=== PATIENT | female | born 1950 | race Caucasian/White ===

== ENCOUNTER → 2017-03-14 | Outpatient (CLI) | payer OTHER ==
[~2017-03-14] MED LIST: ADVIL200 MG PO; CITALOPRAM10 MG PO; LISINOPRIL5 MG PO; LOPRESSOR25 MG PO
--- NOTE | ~2017-03-14 | ST ---
[place], [place] EXERCISE STRESS TEST REPORT NAME: TA BANSAL [facility] #: [id number] UNIT #: [id number] ROOM: DOCTOR: TAVO HYLTON [facility],BIJU BIRTHDATE: [birth year] DOS: 03/14/2017 STRESS TEST REPORT The patient underwent stress test and stays on Jose protocol, up to 4 METs and up to 100% predicted, 156 per minute. Ischemic changes in the inferior and lateral leads, horizontal ST depression more than 1 mm and the patient developed tiredness and fatigue. Underlying ischemia in the inferior and the lateral leads, II, III, aVF, and V4, V5, V6 and blood pressure response is good. Double product is good. Optimize the medical therapy. In spite of the patient still is symptomatic, may consider further evaluation with coronary arteriography. BIJU VO MD CM:STRESS:EXERCISE STRESS TEST REPORT [id number] BIJU VO MD [facility]
--- NOTE | 2017-03-14 13:00 | NUR ---
INFORMED CONSENT OBTAINED FOR STANDARD GXT WITH DR. VO. RESTING EKG NSR WITH A SUPINE HR OF 73 WITH BP OF 160/98 AND HR OF 87 WITH BP OF 144/88 IN STANDING POSITION. PT COMPLETED 2:31 OF STAGE I OF A KALI PROTOCOL AT 1.7 MPH AND 10% GRADE. REACHED A PEAK HR OF 156 WHICH IS 102% OF PREDICTED MAX WITH PEAK BP OF 160/72. TEST TERMINATED BECAUSE OF FATIGUE. HAD NO CHEST PAIN. DID DEVELOP [address] DEPRESSION IN LEADS II,III,AVF AND V5-V6. DR. VO EXPLAINED ABNORMAL EKG AND APPOINTMENT SCHEDULED FOR IN [place] OFFICE. EXPLAINED TO AVOID STRENUOUS ACTIVITY AND TO CALL 911 AND GO TO ER IF DEVELOPS CHEST/SHOUDER/UPPER BACK DISCOMFORT OR SOB. HANDOUT GIVEN. LAST RECOVERY HR OF 80 WITH BP OF 144/72. HAS LIMITED EXERCISE TOLERANCE. DISCHARGED IN STABLE CONDITION.
== END | disposition home or self-care (01) ==
LOC: CARD 01:58
DX: I20.8 Other forms of angina pectoris (principal); M79.602 Pain in left arm

== ENCOUNTER 2017-08-05 13:32 | Emergency (ER) | payer OTHER ==
[~2017-08-05] VITALS: Ht 152.4 cm; Wt 76.2 kg
[2017-08-05] MEDS ORDERED: CENTRUM ADULTS1 EACH PO (13:47)
[2017-08-05 14:18] LABS: BASO # 0.1 10*3/uL (0.0-0.1); BASO % 0.8 % (0.0-1.0); EOS # 0.2 10*3/uL (0.0-0.4); EOS % 2.8 % (1.0-4.0); HEMATOCRIT 41.5 % (37.0-47.0); HEMOGLOBIN 13.3 g/dl (12.0-16.0); LYMPH # 2.5 10*3/uL (1.3-4.4); MEAN CELL VOLUME 94.1 fl (81.0-99.0); MEAN CORPUSCULAR HGB 30.2 pg (27.0-31.0); MEAN PLATELET VOLUME 11.3 fl (9.6-12.3); MONO # 0.6 10*3/uL (0.1-1.0); NEUT # 4.6 10*3/uL (2.3-7.9); NEUT % 57.1 % (47.0-73.0); PLATELET COUNT AUTOMATED 238 10*3/uL (130-400); RED BLOOD COUNT 4.41 10*6/uL (4.10-5.10); RED CELL DISTRI WIDTH 14.2 % (0-14.5)
[2017-08-05 14:37] LABS: ALBUMIN 3.9 gm/dl (3.1-4.5); ALKALINE PHOSPHATASE 63 U/L (45-117); BUN 21 mg/dl (7-24); CHLORIDE 104 mmol/L (98-107); CREATININE 0.94 mg/dL (0.55-1.02); SGOT/AST 23 IU/L (3-35); SGPT/ALT 26 U/L (12-78); SODIUM 140 mmol/L (136-145)
[2017-08-05 14:38] LABS: TROPONIN I < 0.015 ng/ml (<0.045)
[2017-08-05] MEDS ORDERED: Meclizine25 MG PO (15:20)
== END 2017-08-05 15:24 | disposition home or self-care (01) ==
LOC: ED 13:32
PROVIDERS: Emergency Medicine
DX: R42 Dizziness and giddiness (principal); R51 Headache; R68.84 Jaw pain; Z98.890 Other specified postprocedural states; Z79.899 Other long term (current) drug therapy

== ENCOUNTER → 2020-11-25 | Outpatient (CLI) | payer OTHER ==
[~2020-11-25] MED LIST changes: +CENTRUM ADULTS1 EACH PO; +Meclizine25 MG PO
[2020-11-25 13:29] LABS: BILIRUBIN Negative (Negative); BLOOD Negative (Negative); CLARITY Cloudy (Clear); COLOR Yellow (Yellow); GLUCOSE Negative (Negative); KETONE Negative (Negative); LEUKO ESTERASE 3+ (Negative); NITRITE Negative (Negative); PH 5.5 (4.5-8.0)
[2020-11-25 13:33] LABS: BASO # 0.1 10*3/uL (0.0-0.1); EOS # 0.2 10*3/uL (0.0-0.4); EOS % 3.3 % (1.0-4.0); HEMATOCRIT 44.4 % (37.0-47.0); MEAN CELL VOLUME 95.1 fl (81.0-99.0); MEAN CORPUSCULAR HGB 29.1 pg (27.0-31.0); MEAN CORPUSCULAR HGB CONC 30.6 g/dl (33.0-37.0); MEAN PLATELET VOLUME 11.9 fl (9.6-12.3); MONO # 0.6 10*3/uL (0.1-1.0); MONO % 8.7 % (3.0-9.0); NEUT % 57.7 % (47.0-73.0); PLATELET COUNT AUTOMATED 278 10*3/uL (130-400); RED BLOOD COUNT 4.67 10*6/uL (4.10-5.10); RED CELL DISTRI WIDTH 14.6 % (0-14.5); RETICULOCYTE % 1.18 % (0.50-2.50); WHITE BLOOD COUNT 6.9 10*3/uL (4.8-10.8)
[2020-11-25 14:00] LABS: ALBUMIN 3.8 gm/dl (3.1-4.5); ALKALINE PHOSPHATASE 62 U/L (45-117); BUN 14 mg/dl (7-24); CHLORIDE 108 mmol/L (98-107); CHOLESTEROL 182 mg/dL (<200); CREATININE 0.98 mg/dL (0.55-1.02); GAMMA GLUTAMYL TRANSPEPTIDASE 20 U/L (5-55); IRON 86 ug/dL (50-170); LDL CHOLESTEROL 112 mg/dL (9-159); SGOT/AST 19 IU/L (3-35); SGPT/ALT 18 U/L (12-78); SODIUM 137 mmol/L (136-145); TOTAL IRON BINDING CAPACITY 351 ug/dl (250-450); TOTAL PROTEIN 8.2 gm/dL (6.4-8.2); TRIGLYCERIDES 139 mg/dl (<150)
[2020-11-25 14:04] LABS: FERRITIN 81.3 ng/mL (10.0-291.0); VITAMIN D, 25-HYDROXY 17.7 ng/mL (30-100)
[2020-11-25 15:16] LABS: BACTERIA 2+; WBC 16-20 wbc/hpf (0-5)
== END | disposition home or self-care (01) ==
LOC: LAB 12:58
PROVIDERS: ATTEND Family Medicine
DX: R53.83 Other fatigue (principal); E78.5 Hyperlipidemia, unspecified; R79.89 Other specified abnormal findings of blood chemistry; E55.9 Vitamin D deficiency, unspecified

== ENCOUNTER → 2021-12-13 | Outpatient (CLI) | payer OTHER ==
[2021-12-13 13:04] LABS: BILIRUBIN Negative (Negative); BLOOD 2+ (Negative); CLARITY Clear (Clear); COLOR Yellow (Yellow); GLUCOSE Negative (Negative); KETONE Negative (Negative); LEUKO ESTERASE 3+ (Negative); NITRITE Negative (Negative); SPECIFIC GRAVITY 1.015 (1.001-1.030)
[2021-12-13 13:06] LABS: BASO # 0.1 10*3/uL (0.0-0.1); BASO % 0.8 % (0.0-1.0); EOS # 0.3 10*3/uL (0.0-0.4); EOS % 4.1 % (1.0-4.0); HEMATOCRIT 41.6 % (37.0-47.0); LYMPH # 2.1 10*3/uL (1.3-4.4); LYMPH % 29.1 % (27.0-41.0); MEAN CORPUSCULAR HGB 29.9 pg (27.0-31.0); MEAN CORPUSCULAR HGB CONC 32.5 g/dl (33.0-37.0); MEAN PLATELET VOLUME 11.3 fl (9.6-12.3); MONO # 0.8 10*3/uL (0.1-1.0); MONO % 10.5 % (3.0-9.0); NEUT % 55.4 % (47.0-73.0); PLATELET COUNT AUTOMATED 251 10*3/uL (130-400); RED BLOOD COUNT 4.52 10*6/uL (4.10-5.10); RETICULOCYTE % 1.37 % (0.50-2.50); WHITE BLOOD COUNT 7.1 10*3/uL (4.8-10.8)
[2021-12-13 13:27] LABS: ALKALINE PHOSPHATASE 49 U/L (45-117); BACTERIA 2+; BUN 14 mg/dl (7-24); CHLORIDE 107 mmol/L (98-107); CHOLESTEROL 176 mg/dL (<200); CREATININE 0.92 mg/dL (0.55-1.02); EPITHELIAL CELLS 21-30; GAMMA GLUTAMYL TRANSPEPTIDASE 17 U/L (5-55); IRON 81 ug/dL (50-170); LDL CHOLESTEROL 108 mg/dL (9-159); POTASSIUM 4.3 mmol/L (3.5-5.1); SGOT/AST 18 IU/L (3-35); SGPT/ALT 15 U/L (12-78); SODIUM 138 mmol/L (136-145); TOTAL PROTEIN 7.6 gm/dL (6.4-8.2); TRIGLYCERIDES 113 mg/dl (<150); WBC 31-40 wbc/hpf (0-5)
[2021-12-13 14:17] LABS: FERRITIN 110.6 ng/mL (10.0-291.0); VITAMIN D, 25-HYDROXY 22.7 ng/mL (30-100)
== END | disposition home or self-care (01) ==
LOC: LAB 12:21
PROVIDERS: ATTEND Family Medicine
DX: R53.83 Other fatigue (principal); R79.89 Other specified abnormal findings of blood chemistry; E78.5 Hyperlipidemia, unspecified; E55.9 Vitamin D deficiency, unspecified

== ENCOUNTER → 2022-10-11 | Outpatient (CLI) | payer OTHER ==
[2022-10-11 13:08] LABS: BASO % 0.5 % (0.0-1.0); EOS # 0.2 10*3/uL (0.0-0.4); EOS % 2.5 % (1.0-4.0); HEMATOCRIT 42.7 % (37.0-47.0); LYMPH # 2.6 10*3/uL (1.3-4.4); LYMPH % 34.4 % (27.0-41.0); MEAN CELL VOLUME 94.1 fl (81.0-99.0); MEAN CORPUSCULAR HGB 29.5 pg (27.0-31.0); MEAN CORPUSCULAR HGB CONC 31.4 g/dl (33.0-37.0); MEAN PLATELET VOLUME 11.4 fl (9.6-12.3); MONO # 0.7 10*3/uL (0.1-1.0); MONO % 9.2 % (3.0-9.0); PLATELET COUNT AUTOMATED 244 10*3/uL (130-400); RED BLOOD COUNT 4.54 10*6/uL (4.10-5.10); RED CELL DISTRI WIDTH 14.1 % (0-14.5); RETICULOCYTE % 1.34 % (0.50-2.50); WHITE BLOOD COUNT 7.5 10*3/uL (4.8-10.8)
[2022-10-11 13:10] LABS: BILIRUBIN Negative (Negative); BLOOD 1+ (Negative); CLARITY Cloudy (Clear); COLOR Yellow (Yellow); GLUCOSE Negative (Negative); KETONE Negative (Negative); LEUKO ESTERASE 2+ (Negative); NITRITE Negative (Negative); PH 5.5 (4.5-8.0)
[2022-10-11 13:32] LABS: ALKALINE PHOSPHATASE 66 U/L (46-116); BUN 14 mg/dl (9-23); CHLORIDE 103 mmol/L (98-107); CHOLESTEROL 192 mg/dL (<200); GAMMA GLUTAMYL TRANSPEPTIDASE 18 U/L (0-73); LDL CHOLESTEROL 127 mg/dL (9-159); POTASSIUM 4.4 mmol/L (3.4-5.1); SGPT/ALT 8 U/L (10-49); TOTAL PROTEIN 7.9 gm/dL (6.0-8.0); TRIGLYCERIDES 106 mg/dl (<150)
[2022-10-11 13:53] LABS: VITAMIN D, 25-HYDROXY 25.7 ng/mL (30-100)
[2022-10-11 14:02] LABS: BACTERIA 3+; EPITHELIAL CELLS 16-20; WBC 41-50 wbc/hpf (0-5)
== END | disposition home or self-care (01) ==
LOC: LAB 12:31
PROVIDERS: ATTEND Family Medicine
DX: R53.83 Other fatigue (principal); R79.89 Other specified abnormal findings of blood chemistry; E55.9 Vitamin D deficiency, unspecified; E78.5 Hyperlipidemia, unspecified

== ENCOUNTER → 2023-01-17 | Outpatient (CLI) | payer OTHER | END | disposition home or self-care (01) | LOC: US 15:50 | PROVIDERS: ATTEND Nurse Practitioner Women's Health | DX: N95.0 Postmenopausal bleeding (principal); R93.89 Abnormal findings on diagnostic imaging of other specified body structures ==

== ENCOUNTER → 2023-02-28 | Outpatient (CLI) | payer OTHER | END | disposition home or self-care (01) | LOC: CT 02-23 11:00 | PROVIDERS: ATTEND Student in an Organized Health Care Education/Training Program | DX: K76.0 Fatty (change of) liver, not elsewhere classified (principal); N88.8 Other specified noninflammatory disorders of cervix uteri; I25.10 Atherosclerotic heart disease of native coronary artery without angina pectoris; K80.20 Calculus of gallbladder without cholecystitis without obstruction; K57.30 Diverticulosis of large intestine without perforation or abscess without bleeding; R59.0 Localized enlarged lymph nodes; Z85.41 Personal history of malignant neoplasm of cervix uteri ==

== ENCOUNTER → 2024-03-03 | Outpatient (CLI) | payer OTHER ==
[2024-03-03 14:49] LABS: BASO % 0.6 % (0.0-1.0); EOS # 0.2 10*3/uL (0.0-0.4); EOS % 2.4 % (1.0-4.0); HEMATOCRIT 39.4 % (37.0-47.0); LYMPH % 30.4 % (27.0-41.0); MEAN CELL VOLUME 98.7 fl (81.0-99.0); MEAN CORPUSCULAR HGB 30.3 pg (27.0-31.0); MEAN CORPUSCULAR HGB CONC 30.7 g/dl (33.0-37.0); MEAN PLATELET VOLUME 10.6 fl (9.6-12.3); MONO # 0.7 10*3/uL (0.1-1.0); MONO % 10.9 % (3.0-9.0); NEUT # 3.6 10*3/uL (2.3-7.9); NEUT % 55.4 % (47.0-73.0); PLATELET COUNT AUTOMATED 253 10*3/uL (130-400); RED BLOOD COUNT 3.99 10*6/uL (4.10-5.10); RETICULOCYTE % 1.38 % (0.50-2.50); WHITE BLOOD COUNT 6.5 10*3/uL (4.8-10.8)
[2024-03-03 15:04] LABS: BILIRUBIN Negative (Negative); BLOOD Negative (Negative); CLARITY Clear (Clear); COLOR Yellow (Yellow); GLUCOSE Negative (Negative); KETONE Trace (Negative); LEUKO ESTERASE 1+ (Negative); NITRITE Negative (Negative); PH 5.5 (4.5-8.0)
[2024-03-03 15:19] LABS: VITAMIN D, 25-HYDROXY 16.8 ng/mL (30-100)
[2024-03-03 15:21] LABS: BACTERIA 1+
[2024-03-03 15:22] LABS: HYALINE CAST 0-2
[2024-03-03 15:49] LABS: ALKALINE PHOSPHATASE 63 U/L (46-116); BUN 23 mg/dl (9-23); CHLORIDE 104 mmol/L (98-107); CHOLESTEROL 192 mg/dL (<200); GAMMA GLUTAMYL TRANSPEPTIDASE 23 U/L (0-73); LDL CHOLESTEROL 102 mg/dL (9-159); POTASSIUM 4.2 mmol/L (3.4-5.1); SGPT/ALT 11 U/L (5-49); TOTAL PROTEIN 7.5 gm/dL (6.0-8.0); TRIGLYCERIDES 226 mg/dl (<150)
== END | disposition home or self-care (01) ==
LOC: LAB 14:23
PROVIDERS: ATTEND Family Medicine
DX: R53.83 Other fatigue (principal); R79.89 Other specified abnormal findings of blood chemistry; E78.5 Hyperlipidemia, unspecified; R74.8 Abnormal levels of other serum enzymes; E55.9 Vitamin D deficiency, unspecified

== ENCOUNTER 2024-07-28 16:57 | Emergency (ER) | payer OTHER ==
[~2024-07-28] VITALS: Ht 144.7 cm; Wt 69.6 kg
[2024-07-28 17:20] LABS: BASO % 0.4 % (0.0-1.0); EOS # 0.1 10*3/uL (0.0-0.4); EOS % 1.4 % (1.0-4.0); HEMATOCRIT 39.7 % (37.0-47.0); MEAN CELL VOLUME 96.1 fl (81.0-99.0); MEAN CORPUSCULAR HGB 29.5 pg (27.0-31.0); MEAN CORPUSCULAR HGB CONC 30.7 g/dl (33.0-37.0); MEAN PLATELET VOLUME 10.2 fl (9.6-12.3); MONO % 12.1 % (3.0-9.0); NEUT % 59.6 % (47.0-73.0); PLATELET COUNT AUTOMATED 263 10*3/uL (130-400); RED BLOOD COUNT 4.13 10*6/uL (4.10-5.10); RED CELL DISTRI WIDTH 14.3 % (0-14.5); WHITE BLOOD COUNT 8.3 10*3/uL (4.8-10.8)
[2024-07-28] MEDS ORDERED: MEDI-MECLIZINE25 MG PO (17:22)
[2024-07-28] MEDS ORDERED: METOPROLOL TART50 M1 PO (17:22)
[2024-07-28] MEDS ORDERED: CORICIDIN HBP1 EACH PO (17:24)
[2024-07-28] MEDS ORDERED: WOMEN'S MULTI200 MCG PO (17:24)
[2024-07-28] MEDS ORDERED: ASPIRIN81 M1 PO (17:24)
[2024-07-28] MEDS ORDERED: ELDERBERRY IMM1 EACH PO (17:25)
[2024-07-28] MEDS ORDERED: VITAMIN B121000 MC1 PO (17:26)
[2024-07-28 17:45] LABS: BILIRUBIN Negative (Negative); BLOOD Negative (Negative); CLARITY Clear (Clear); COLOR Yellow (Yellow); GLUCOSE Negative (Negative); KETONE Negative (Negative); LEUKO ESTERASE Negative (Negative); NITRITE Negative (Negative); PH 5.5 (4.5-8.0)
[2024-07-28 17:47] LABS: ALKALINE PHOSPHATASE 50 U/L (46-116); BUN 15 mg/dl (9-23); CHLORIDE 102 mmol/L (98-107); LIPASE 34 U/L (12-53); SGPT/ALT 8 U/L (5-49); TOTAL PROTEIN 7.6 gm/dL (6.0-8.0)
[2024-07-28 17:55] LABS: MUCOUS 1+; WBC 0-2 wbc/hpf (0-5)
[2024-07-28] MEDS ORDERED: Dicyclomine Hydrochloride 20 MG/10 ML OSYR PO STA (17:57)
[2024-07-28] MEDS ORDERED: MG-AL HYDROXIDE/SIMETICONE 30 ML UDC PO STA (17:57)
[2024-07-28] MEDS ORDERED: Lidocaine Hydrochloride 15 ML UDC PO STA (17:57)
[2024-07-28] MEDS ORDERED: PRILOSEC20 M1 PO (20:01)
== END 2024-07-28 20:13 | disposition home or self-care (01) ==
LOC: ED 16:57
PROVIDERS: Nurse Practitioner Family
DX: R10.13 Epigastric pain (principal); I10 Essential (primary) hypertension; F41.9 Anxiety disorder, unspecified; Z79.899 Other long term (current) drug therapy; Z98.890 Other specified postprocedural states

== ENCOUNTER 2025-04-11 23:50 | Inpatient (IN) | payer OTHER ==
[~2025-04-11] VITALS: Ht 142.2 cm; Wt 62.6 kg
[~2025-04-11 23:50] MED LIST changes: +ASPIRIN81 M1 PO; +B12 ACTIVE1000 MCG PO; +CALCIUM GLUCONATE 1 GM/10 ML VIAL ONE; +CELEXA20 MG PO; +CORICIDIN HBP1 EACH PO; +ELDERBERRY IMM1 EACH PO; +ELIQUIS5 M1 PO; +GABARONE100 M1 PO; +INSULIN REGULAR, HUMAN 1 UNIT/0.01 ML ONE; +MEDI-MECLIZINE25 MG PO; +METOPROLOL TART50 M1 PO; +MULTIVITAMIN1 EACH PO; +Ondansetron4 MG PO; +PRILOSEC20 M1 PO; +SODIUM CHLORIDE 0.9% 100 ML IV ONE; +SODIUM POLYSTYRENE SULFONATE 15 GM/60 ML BOT ONE; +VITAMIN B121000 MC1 PO; +WOMEN'S MULTI200 MCG PO
[2025-04-12] VITALS: BP 75/42
[2025-04-12] MEDS ORDERED: NOREPINEPHRINE BITARTRATE/D5W 250 ML IV SCH (00:45)
[2025-04-12] MEDS ORDERED: LORazepam 2 MG/ML VIAL IV PRN ×2 (00:45→05:45)
[2025-04-12] MEDS ORDERED: HYOSCYAMINE SULFATE 0.125 MG TAB SL PRN (03:40)
[2025-04-12] MEDS ORDERED: ACETAMINOPHEN 650 MG SUPP R PRN (03:40)
[2025-04-12] MEDS ORDERED: ACETAMINOPHEN 650 MG SUPP R SCH (04:00)
[2025-04-12] MEDS ORDERED: HYOSCYAMINE SULFATE 0.125 MG TAB SL SCH (06:00)
[2025-04-12] MEDS ORDERED: SODIUM CHLORIDE 0.9% 500 ML IV SCH (07:50)
[2025-04-12 08:00] VITALS: BP 61/40
[2025-04-12] MEDS ORDERED: SODIUM CHLORIDE 0.9% 500 ML IV ONE (08:22)
[2025-04-12] MEDS ORDERED: BISACODYL 10 MG SUPP R SCH (10:00)
[2025-04-12] MEDS ORDERED: GLYCOPYRROLATE 0.2 MG/1 ML VIAL IV PRN (14:40)
[2025-04-12] MEDS ORDERED: GLYCOPYRROLATE 0.4 MG/2 ML VIAL IV PRN (14:55)
== END 2025-04-12 19:08 | DRG 871 ==
LOC: ICCU 23:50
PROVIDERS: ADMIT Internal Medicine; ATTEND Internal Medicine
DX: A41.9 Sepsis, unspecified organism (principal); J18.9 Pneumonia, unspecified organism; N17.0 Acute kidney failure with tubular necrosis; R65.21 Severe sepsis with septic shock; J90 Pleural effusion, not elsewhere classified; C55 Malignant neoplasm of uterus, part unspecified; E87.5 Hyperkalemia; D50.9 Iron deficiency anemia, unspecified; D75.839 Thrombocytosis, unspecified; R74.8 Abnormal levels of other serum enzymes; R74.01 Elevation of levels of liver transaminase levels; F41.9 Anxiety disorder, unspecified; R31.9 Hematuria, unspecified; Z66 Do not resuscitate; Z51.5 Encounter for palliative care; Z86.718 Personal history of other venous thrombosis and embolism; Z93.3 Colostomy status; Z79.01 Long term (current) use of anticoagulants; Z86.711 Personal history of pulmonary embolism